=== PATIENT | male | born 1955 | race Caucasian/White ===

== ENCOUNTER 2022-02-24 01:48 | Emergency (ER) | payer MEDICARE ==
[2022-02-24] MEDS ORDERED: TORAdol 30 mg Injection IM ONE (02:43)
[2022-02-24] MEDS ORDERED: TORAdol 30 mg Injection ONE (02:52)
--- NOTE | 2022-02-24 02:52 | ERPHSYRPT ---
- History of Present Illness Historian: patient Exam Limitations: no limitations Patient Subjective Stated Complaint: abd pain, constipation, flank pain Triage Nursing Assessment: pt ambulated into ER without diff, friend at bedside. Pt c/o Lt flank pain and abdominal pain. Pt c/o constipation. Pt's abd is rounded, firm with active bs x4 quad, nontender on palpation. LBM was 02/21/22 but usually goes daily. Pt describes the abd pain as cramping and constant and has a hard time getting comfortable. Physician History: 66 yo wm w L CVA pain x3 days. Pain is 6/10 and described as an ache. Nothing makes it better or worse, and it radiates to his R flank. He has had nausea wo vomiting/diarrhea/dysuria/hematuria/melena/hematochezia. States that he has not had a bowel movement in 3 days. Timing/Duration: other (3days) Activities at Onset: rest Quality: aching Abdominal Pain Onset Location: other (L CVA pain) Pain Radiation: other (L flank) Severity of Pain-Max: severe Severity of Pain-Current: moderate Modifying Factors: Improves With: nothing Associated Symptoms: denies symptoms, nausea Previous symptoms: no prior history Allergies/Adverse Reactions: No Known Drug Allergies Allergy (Unverified 02/24/22 02:34) Home Medications: No Reportable Medications [No Reported Medications] 02/24/22 [History] Hx Tetanus, Diphtheria Vaccination/Date Given: No Hx Influenza Vaccination/Date Given: No Hx Pneumococcal Vaccination/Date Given: Yes Immunizations Up to Date: No Travel Risk - International Travel Have you traveled outside of the country in past 3 weeks: No - Coronavirus Screening Are you exhibiting any of the following symptoms?: No Close contact with a COVID-19 positive Pt in past 14-21 Days: No - Vaccine Status Have you recieved a Covid-19 vaccination: Yes Parking Enforcement Specialist: Moderna - Vaccination Dates Date of 2cond Vaccination (if applicable): . - Review of Systems Constitutional: No Symptoms Eyes: No Symptoms Ears, Nose, & Throat: No Symptoms Respiratory: No Symptoms Cardiac: No Symptoms Abdominal/Gastrointestinal: No Symptoms, Nausea Genitourinary Symptoms: No Symptoms, Flank Pain Musculoskeletal: No Symptoms Skin: No Symptoms Neurological: No Symptoms Psychological: No Symptoms Endocrine: No Symptoms Hematologic/Lymphatic: No Symptoms Immunological/Allergic: No Symptoms - Past Medical History Pertinent Past Medical History: No - Past Surgical History Past Surgical History: No - Social History Smoking Status: Current every day smoker How long have you smoked: 30 yrs Exposure to second hand smoke: Yes Drug Use: marijuana Patient Lives Alone: No Significant Family History: no pertinent family hx - Nursing Vital Signs Nursing Vital Signs: Initial Vital Signs Temperature 97.7 F 02/24/22 02:23 Pulse Rate 70 02/24/22 02:23 Respiratory Rate 16 02/24/22 02:23 Blood Pressure 146/83 02/24/22 02:23 O2 Sat by Pulse Oximetry 97 02/24/22 02:23 Pain Scale Pain Intensity 1 Hypertensive - Physical Exam General Appearance: no apparent distress Eye Exam: PERRL/EOMI, eyes nml inspection Ears, Nose, Throat Exam: normal ENT inspection, TMs normal, pharynx normal, moist mucous membranes Neck Exam: normal inspection, non-tender, supple, full range of motion, No meningismus, No mass, No Brudzinski, No Kernig's, No carotid bruit Respiratory Exam: normal breath sounds, lungs clear, airway intact Cardiovascular Exam: regular rate/rhythm, normal heart sounds, normal peripheral pulses, capillary refill <2 sec, No murmur Gastrointestinal/Abdomen Exam: soft, distention, No tenderness Back Exam: CVA tenderness (Mild L CVA pain) Extremity Exam: normal inspection, normal range of motion Neurologic Exam: alert, oriented x 3, cooperative, 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, normal mood/affect, nml cerebellar function, nml station & gait, sensation nml, No motor deficits, No sensory deficit Skin Exam: normal color, warm, dry Lymphatic Exam: No adenopathy SpO2 Interpretation: normal SpO2: 97 O2 Delivery: Room Air - Course Nursing assessment & vital signs reviewed: Yes - CT Exams Abdomen/Pelvis CT Interpretation: Tele-radiologist Report (3mm prox L ureteral stone/Mod hydro) Ordered Tests: Active Orders 24 hr Category Date Time Status ABDOMEN AND PELVIS W/0 CONTRAS [CT] Stat Exams 02/24/22 02:38 Taken UA W/RFX CULTURE Stat Lab 02/24/22 02:36 Completed Urine Triage Profile Stat Lab 02/24/22 02:36 Completed Medication Summary Discontinued Medications Generic Name Dose Route Start Last Admin Trade Name Freq PRN Reason Stop Dose Admin Ketorolac Tromethamine 30 mg 02/24/22 02:43 02/24/22 02:54 Ketorolac Tromethamine 30 Mg/Ml Inj IM 02/24/22 02:44 30 mg STAT ONE Administration Ketorolac Tromethamine Confirm 02/24/22 02:52 Ketorolac Tromethamine 30 Mg/Ml Inj Administered 02/24/22 02:53 Dose 30 mg .ROUTE .STK-MED ONE Lab/Rad Data: Laboratory Results 02/24/22 02/24/22 Range/Units 02:36 02:36 Urinalys Dipstick Clnc MAIN LAB Urine Color YELLOW (YELLOW) Urine Appearance CLEAR (CLEAR) Urine pH 5.0 (5-6) Ur Specific [place] 1.025 (1.005-1.025) POC Urine Protein Conf TRACE A (Negative) Urine Ketones SMALL-15 A (NEGATIVE) Urine Nitrite NEGATIVE (NEGATIVE) Urine Bilirubin SMALL A (NEGATIVE) Urine Urobilinogen 0.2 (0-1) mg/dL Urine Leukocytes NEGATIVE (NEGATIVE) Urine WBC (Auto) 3-5 A (0-5) /HPF Urine RBC (Auto) >101 A (0-2) /HPF U Epithel Cells (Auto) NONE (FEW) /HPF Urine Bacteria (Auto) NONE (NEGATIVE) /HPF Urine RBC LARGE A (0-5) Andrea/ul Urine Mucus (Auto) SLIGHT A (NEGATIVE) /HPF Ur Culture Indicated? NO Urine Glucose NEGATIVE (NEGATIVE) mg/dL Urine Opiates Level POSITIVE (NEGATIVE) Ur Methadone NEGATIVE (NEGATIVE) Urine Barbiturates NEGATIVE (NEGATIVE) Ur Phencyclidine (PCP) NEGATIVE (NEGATIVE) Urine Amphetamine NEGATIVE (NEGATIVE) U Benzodiazepine Level NEGATIVE (NEGATIVE) Urine Cocaine NEGATIVE (NEGATIVE) Urine Marijuana (THC) NEGATIVE (NEGATIVE) - Progress Progress: improved Progress Note: 02/24/22 03:17 Pain decreased from 6 to 1 w 30mg IM Toradol 02/24/22 04:51 Pain still greatly improved upon discharge Counseled pt/family regarding: lab results, diagnosis, need for follow-up, rad results - Departure Departure Disposition: Home Clinical Impression: Ureterolithiasis Condition: Stable Critical Care Time: No Referrals: DOCTOR,NO FAMILY [Primary Care Provider] - Follow up/PCP as directed Instructions: Kidney Stones (DC) Additional Instructions: Strain all urine Pain meds as needed Follow up with your family MD Return to ER for increasing pain or temperature greater than 100.5
[2022-02-24 02:53] LABS: Mucus SLIGHT /HPF (NEGATIVE)
[2022-02-24 02:55] LABS: Appearance CLEAR (CLEAR); Bilirubin SMALL (NEGATIVE); Dipstick done @ ? MAIN LAB; Glucose NEGATIVE (NEGATIVE); Ketones SMALL-15 (NEGATIVE); Nitrite NEGATIVE (NEGATIVE); Protein,Urine Dip TRACE (Negative); RBC LARGE Ery/ul (0-5); Specific Gravity 1.025 (1.005-1.025); Urobilinogen 0.2 mg/dL (0-1)
[2022-02-24 02:56] LABS: RBC >101 /HPF (0-2); Urine Cultured Indicated? NO
[2022-02-24 03:14] LABS: Amphetamine,Urine NEGATIVE (NEGATIVE); Barbiturate,Urine NEGATIVE (NEGATIVE); Cocaine,Urine NEGATIVE (NEGATIVE); Methadone,Urine NEGATIVE (NEGATIVE); Opiate,Urine POSITIVE (NEGATIVE); PCP,Urine NEGATIVE (NEGATIVE); THC,Urine NEGATIVE (NEGATIVE)
[2022-02-24 03:16] LABS: Benzodiazepine,Urine NEGATIVE (NEGATIVE)
[2022-02-24 04:13] VITALS: BP 94/74; PULSE 74
[2022-02-24] MEDS ORDERED: NORCO 5/325 MG PO ONE (04:50)
[2022-02-24 04:51] VITALS: O2SAT 97
[2022-02-24] MEDS ORDERED: NORCO 5/325 MG ONE (04:55)
--- NOTE | 2022-02-24 08:26 | XRAY ---
Indication: Flank pain. Multiple contiguous axial images obtained through the abdomen and pelvis without contrast. Comparison: None Lung bases demonstrates pulmonary emphysema and minimal dependent atelectasis. No infiltrate or effusion. Heart not enlarged. Small hiatal hernia. Noncontrasted stomach and bowel loops nonobstructed with normal air-filled appendix. 3 mm left mid to proximal ureteral calculus, approximately L4 level. Moderate left renal hydronephrosis with minimal perinephric stranding favors obstructive uropathy. No free fluid/air. At least 4 additional left renal micro-calculi. 8 mm right mid renal exophytic cyst. Incidental 2.0 x 2.2 cm left adrenal adenoma and 2 [id number] hepatic cysts largest 2.4 cm. Remaining liver, gallbladder, pancreas, spleen, adrenal glands, kidneys, ureters, and bladder are unremarkable for noncontrast exam. Moderate scattered aortoiliac calcifications without AAA. Osseous structures intact with minimal/mild degenerative changes throughout the spine and both hips. No ventral or inguinal hernias. Impression: 1. 3 mm left ureteral calculus producing obstructive uropathy as detailed. Additional left renal micro-calculi. 2. Incidental small hiatal hernia, pulmonary emphysema, small hiatal hernia, tiny right renal cyst, hepatic cysts, small left adrenal adenoma, chronic bony findings, and arteriosclerotic disease. Comment: Preliminary interpretation made by [facility]. No critical discrepancy.
== END 2022-02-24 05:05 | disposition home or self-care (01) ==
LOC: ED 01:48
DX: N13.2 Hydronephrosis with renal and ureteral calculous obstruction (principal); R10.9 Unspecified abdominal pain; R11.0 Nausea; Z72.0 Tobacco use
CPT/HCPCS: 74176; 80307; 81015; 96372; 99283; J1885; A9270-GY